=== PATIENT | male | born 1950 | race Caucasian/White ===

== ENCOUNTER 2016-12-21 07:31 | Emergency (ER) | payer MEDICARE ==
[~2016-12-21] VITALS: Ht 167.6 cm; Wt 78.2 kg
[2016-12-21] MEDS ORDERED: PERCOCET 5/325M1 TAB PO (08:52)
[2016-12-21 09:07] VITALS: BP 170/88
== END 2016-12-21 09:07 | disposition home or self-care (01) ==
LOC: ED 07:31
DX: S57.82XA Crushing injury of left forearm, initial encounter (principal); W23.1XXA Caught, crushed, jammed, or pinched between stationary objects, initial encounter; Y93.89 Activity, other specified; Y92.89 Other specified places as the place of occurrence of the external cause

== ENCOUNTER → 2018-04-11 | Outpatient (REF) | payer MEDICARE ==
[~2018-04-11] VITALS: Ht 170.2 cm; Wt 77.1 kg
[~2018-04-11] MED LIST: ASPIRIN LOW DOS81 M1 PO; BOTOX100 UNIT IM; FLEXERIL PO; NAPROSYN500 MG PO; PERCOCET 5/325M1 TAB PO; TAMSULOSIN0.4 MG PO
[2018-04-11 18:01] VITALS: BP 129/85
== END | disposition home or self-care (01) ==
LOC: ORM 08:00 → PO 08:13
PROVIDERS: ATTEND Internal Medicine Gastroenterology
DX: Z01.818 Encounter for other preprocedural examination (principal); K21.9 Gastro-esophageal reflux disease without esophagitis; R13.10 Dysphagia, unspecified; R05 Cough; K44.9 Diaphragmatic hernia without obstruction or gangrene; Z85.828 Personal history of other malignant neoplasm of skin; Z97.2 Presence of dental prosthetic device (complete) (partial); R39.198 Other difficulties with micturition

== ENCOUNTER 2018-04-13 09:23 | Day surgery (SDC) | payer MEDICARE ==
[~2018-04-13] VITALS: Ht 170.2 cm; Wt 77.1 kg
[~2018-04-13 09:23] MED LIST changes: -FLEXERIL PO; -NAPROSYN500 MG PO
[2018-04-13 11:49] VITALS: BP 142/86
== END 2018-04-13 11:55 | disposition home or self-care (01) ==
LOC: ENDO 09:23 → ORM 15:00
PROVIDERS: ATTEND Internal Medicine Gastroenterology
PROC: 0D758ZZ Dilation of Esophagus, Via Natural or Artificial Opening Endoscopic (ICD-10-PCS; principal; 2018-04-13)
PROC: 0DB48ZX Excision of Esophagogastric Junction, Via Natural or Artificial Opening Endoscopic, Diagnostic (ICD-10-PCS; 2018-04-13)
PROC: 0DB28ZX Excision of Middle Esophagus, Via Natural or Artificial Opening Endoscopic, Diagnostic (ICD-10-PCS; 2018-04-13)
DX: K22.8 Other specified diseases of esophagus (principal); K29.70 Gastritis, unspecified, without bleeding

== ENCOUNTER 2018-04-21 14:43 | Emergency (ER) | payer MEDICARE ==
[~2018-04-21] VITALS: Ht 170.2 cm; Wt 77.2 kg
[2018-04-21] MEDS ORDERED: FLEXERIL PO (17:02)
[2018-04-21] MEDS ORDERED: NAPROSYN500 MG PO (17:02)
[2018-04-21 17:04] VITALS: BP 138/80
== END 2018-04-21 17:07 | disposition home or self-care (01) ==
LOC: ED 14:43
DX: M79.661 Pain in right lower leg (principal)

== ENCOUNTER → 2018-05-01 | Outpatient (REF) | payer MEDICARE ==
[~2018-05-01] MED LIST changes: +FLEXERIL PO; +NAPROSYN500 MG PO
== END | disposition home or self-care (01) ==
LOC: CT 13:36
PROVIDERS: ATTEND Internal Medicine
DX: R31.9 Hematuria, unspecified (principal); N40.0 Benign prostatic hyperplasia without lower urinary tract symptoms

== ENCOUNTER 2019-11-12 06:36 | Day surgery (SDC) | payer MEDICARE ==
[~2019-11-12] VITALS: Ht 170.2 cm; Wt 77.1 kg
[~2019-11-12 06:36] MED LIST changes: +ASPIRIN 8181 MG PO; +OMEPRAZOLE20 MG PO; +VITAMIN C1000 MG PO; +VITAMIN D2000 UNI3 PO; +ZINC50 MG PO
[2019-11-12 09:53] VITALS: BP 145/73
== END 2019-11-12 09:10 | disposition home or self-care (01) ==
LOC: ENDO 06:36
PROVIDERS: ATTEND Surgery
PROC: 0DJD8ZZ Inspection of Lower Intestinal Tract, Via Natural or Artificial Opening Endoscopic (ICD-10-PCS; principal; 2019-11-12)
DX: Z12.11 Encounter for screening for malignant neoplasm of colon (principal); Z87.19 Personal history of other diseases of the digestive system; Z20.828 Contact with and (suspected) exposure to other viral communicable diseases

== ENCOUNTER 2020-07-23 07:15 | Day surgery (SDC) | payer MEDICARE ==
[2020-07-23 09:52] VITALS: BP 136/99
== END 2020-07-23 10:30 | disposition home or self-care (01) ==
LOC: ENDO 07:15 → ORM 09:10 → ENDO 09:10 → ORM 09:30 → ENDO 10:30
PROVIDERS: ATTEND Surgery
PROC: 0DJ08ZZ Inspection of Upper Intestinal Tract, Via Natural or Artificial Opening Endoscopic (ICD-10-PCS; principal; 2020-07-23)
PROC: 0DJD8ZZ Inspection of Lower Intestinal Tract, Via Natural or Artificial Opening Endoscopic (ICD-10-PCS; 2020-07-23)
DX: K29.71 Gastritis, unspecified, with bleeding (principal); K44.9 Diaphragmatic hernia without obstruction or gangrene; K64.8 Other hemorrhoids